=== PATIENT | male | born 1990 | race Caucasian/White ===

== ENCOUNTER 2020-06-15 06:13 | Emergency (ER) | payer OTHER ==
[~2020-06-15] VITALS: Ht 170.2 cm; Wt 61.2 kg
[2020-06-15 07:03] VITALS: BP 120/82
== END 2020-06-15 07:05 | disposition home or self-care (01) ==
LOC: M.ERS 06:13
DX: R11.10 Vomiting, unspecified (principal); Z20.822 Contact with and (suspected) exposure to COVID-19; J45.909 Unspecified asthma, uncomplicated

== ENCOUNTER 2021-01-03 11:51 | Emergency (ER) | payer OTHER ==
[~2021-01-03] VITALS: Ht 170.2 cm; Wt 61.2 kg
[2021-01-03] MEDS ORDERED: FLEXERIL PO (14:22)
[2021-01-03] MEDS ORDERED: NAPROSYN500 MG PO (14:22)
[2021-01-03] MEDS ORDERED: MEDROLDOSEPACK PO (14:22)
[2021-01-03 14:52] VITALS: BP 118/82
== END 2021-01-03 14:53 | disposition home or self-care (01) ==
LOC: M.ERS 11:51
DX: S29.012A Strain of muscle and tendon of back wall of thorax, initial encounter (principal); K08.89 Other specified disorders of teeth and supporting structures; J45.909 Unspecified asthma, uncomplicated; X58.XXXA Exposure to other specified factors, initial encounter; Y93.89 Activity, other specified; Y92.89 Other specified places as the place of occurrence of the external cause; Y99.8 Other external cause status

== ENCOUNTER 2021-02-06 09:16 | Emergency (ER) | payer OTHER ==
[~2021-02-06] VITALS: Ht 172.7 cm; Wt 72.6 kg
[~2021-02-06 09:16] MED LIST: FLEXERIL PO; MEDROLDOSEPACK PO; NAPROSYN500 MG PO
[2021-02-06 09:52] VITALS: BP 136/86
== END 2021-02-06 09:53 | disposition home or self-care (01) ==
LOC: M.ERS 09:16
DX: U07.1 COVID-19 (principal); J45.909 Unspecified asthma, uncomplicated

== ENCOUNTER 2021-05-30 07:15 | Emergency (ER) | payer OTHER ==
[~2021-05-30] VITALS: Ht 170.2 cm; Wt 61.2 kg
[2021-05-30 07:24] VITALS: BP 143/95
[2021-05-30] MEDS ORDERED: AMOXICILLIN875 MG PO (09:07)
== END 2021-05-30 09:19 | disposition home or self-care (01) ==
LOC: M.ERS 07:15
DX: K08.89 Other specified disorders of teeth and supporting structures (principal); J45.909 Unspecified asthma, uncomplicated; F12.90 Cannabis use, unspecified, uncomplicated